=== PATIENT | male | born 1960 | race Caucasian/White ===

== ENCOUNTER 2018-03-10 05:34 | Day surgery (SDC) | payer BC ==
[~2018-03-10] VITALS: Ht 177.8 cm; Wt 99.9 kg
[2018-03-10] VITALS (8 sets, daily range): BP systolic 119–169; BP diastolic 66–98; PULSE 64–95; TEMP 97.7–98.4
[2018-03-10] MEDS ORDERED: ZOLOFT 100MG100 MG PO (06:22)
[2018-03-10] MEDS ORDERED: NORCO 325 MG-7.1 TAB PO (10:26)
[2018-03-10] MEDS ORDERED: ROXICODONE 55 MG/TAB PO (10:26)
== END 2018-03-10 14:50 | disposition home or self-care (01) ==
LOC: SURG 05:34 → SDCO 05:34 → SURG 05:35 → SDCO 14:50
DX: S52.501A Unspecified fracture of the lower end of right radius, initial encounter for closed fracture (principal); W01.0XXA Fall on same level from slipping, tripping and stumbling without subsequent striking against object, initial encounter; Y93.89 Activity, other specified
CPT/HCPCS: OP; C1713; J1100; J1885; J2250; J2405; J2704; J2795; J3010; J7120